=== PATIENT | female | born 1990 | race Caucasian/White ===

== ENCOUNTER 2019-04-10 17:41 | Inpatient (IN) | payer OTHER ==
[~2019-04-10] VITALS: Ht 174 cm; Wt 103.8 kg
[2019-04-10] VITALS (24 sets, daily range): BP systolic 95–176; BP diastolic 52–93
[2019-04-10] MEDS ORDERED: PRENTAB9 PO (19:04)
[2019-04-10] MEDS ORDERED: VALT500T PO (19:04)
--- NOTE | 2019-04-10 19:16 | HPE ---
DATE OF ADMISSION: 04/10/2019 A 28-year-old 1, last period 04/12/2019, estimated date of confinement (EDC) 04/17/2019, at 39 weeks, contractions every 7 minutes, 40 seconds, moderate intensity, no show or loss of fluid. 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 She is presently on Valtrex prophylactically. LABS: B positive, HIV negative, hepatitis negative, RPR negative, rubella immune, varicella immune. Pap normal. Urine negative. Gonorrhea and chlamydia are negative 1-hour glucose 99. GBS is negative. Urine1.010, pH 7. Blood pressure 122/84, respirations 16, pulse 99, temperature is 98.8. No distress. Symphysis fundus height is 39, vertex, ballotable and there is a vertex presenting, but it is floating 3 cm, stretchy. She has a bit of show. No ruptured membranes or bleeding. Contractions are 7 minutes. Category 1 strip for the most part. She does have periods of reduced variability, mostly it is moderate with accelerations, especially after she started drinking. Our plan is to examine her in a couple of hours, see if there is any change in the heart rate pattern or contractions or dilatation. If any of those are changed parameters, we will keep her as active labor in early stages, otherwise she will be discharged to followup in the office. Patient and expressed understanding of the plan of care.
--- NOTE | 2019-04-10 20:54 | IPN ---
DATE: 04/10/2019 28-year-old 1, para 0, last menstrual period (LMP) 04/12/2019, estimated date of delivery (EDC) 04/17/2019 at 39 weeks of gestation, came in initially earlier with contractions every 7 minutes apart, lasting 40 seconds, moderate intensity. She was found at that time to be 3 cm ballottable anterior with some show. We expected to evaluate her 2 hours later. Within an hour and a half she had spontaneous rupture of membranes clear liquid 2 cm, -2 station in active labor. PHYSICAL EXAMINATION: She had a category one strip, normocephalic, atraumatic. Neck: Full range of motion. Pupils equal and reactive to light. Distal pulses symmetric. No evidence of deep venous thrombosis (DVT), pulmonary embolism (PE) or superficial phlebitis. Chest is clear bilaterally bases. No wheezes or rhonchi. No CVA tenderness. Abdomen is soft. Uterus is nontender. Four quadrant bowel sounds are noted. She has no rashes, lesions or pruritus. No arthralgia, myalgia, no complaint of joint pain. No complaint of cough, wheeze, shortness breath or dyspnea on exertion. No bleeding. Neuro complete. No incontinence, urgency or frequency. No nausea, vomiting, diarrhea or constipation. No diabetic issues. She has no [employer] H[employer]IP or past medical or surgical history of consequence for labor and delivery. She is HSV positive, but has not had an outbreak since 2011, is on prophylactic Zovirax. Consent for vaginal delivery was described with the patient with possible use of forceps or vacuum devices needed, for maternal and indications, devices used to assist in vaginal delivery when normal pushing efforts cannot achieve delivery on their own or when delivery is needed in an emergency for baby's well-being. Medication may be used to augment or induce labor in order to achieve vaginal delivery and episiotomy may or may not be required to help baby deliver vaginally. May also require repair of any lacerations or tears of the vagina, vulva and caused by delivery and some case emergencies can arise that require emergency section. Emergency sections are only done for and maternal indications and this will be explained by her provider. This is delivery through the abdomen with an incision and sometimes this is safer for the mother and baby than continuing labor and I mentioned only performed with clinical indications. Risks of vaginal delivery include but not limited to bleeding, infection, injury to vagina, pelvic structures, baby, damage to the uterus, reaction to anesthesia, uterine rupture, risk of hysterectomy for life-threatening bleeding situations or even . Medications used to induce or augment may possibly increase the risk of hysterectomy, hemorrhage, tachysystole, heart rate abnormalities. There is an increase in perineal or vaginal tears, the risk of bowel or bladder injury, use of forceps or vacuum include scratches, hematomas of the head or intracranial bleed. The patient verbalized understanding and wishes to proceed and is requesting an epidural.
[2019-04-10] MEDS ORDERED: PROMETHAZINE INJ 25 MG/ML VIAL (J2550) IV ONE (21:00)
[2019-04-10] MEDS ORDERED: LR 1,000 ML IV SCH (21:00)
[2019-04-10] MEDS ORDERED: LACTATED RINGER'S 1000 ML IV ONE (21:00)
[2019-04-10] MEDS ORDERED: BUTORPHANOL 2 MG/ML INJ (J0595) IV ONE (21:00)
[2019-04-10 21:48] LABS: HEMATOCRIT 47.5 % (36.0-47.0); HEMOGLOBIN 16.2 g/dl (12.0-15.5); MEAN CORPUSCULAR HEMOGLOBIN 32.3 pg (27.0-33.0); MEAN CORPUSCULAR HGB CONC 34.1 g/dl (32.0-36.5); MEAN CORPUSCULAR VOLUME 94.6 fl (80.0-96.0); PLATELET COUNT, AUTOMATED 244 10^3/uL (150-450); RED BLOOD COUNT 5.02 10^6/uL (4.00-5.40); WHITE BLOOD COUNT 14.2 10^3/uL (4.0-10.0)
[2019-04-10] MEDS ORDERED: FENTANYL 2MCG/ML ROPIVACAINE 0.2% IN 0.9% NACL 100ML IVBAG As Ordered ONE (21:49)
[2019-04-10] MEDS ORDERED: REFRIGERATOR IV KEYS XX PRN (22:15)
[2019-04-10] MEDS ORDERED: ePHEDrine SULFATE 25 MG/5 ML(5MG/ML) SYRINGE IV PRN (22:15)
[2019-04-10] MEDS ORDERED: EPIDURAL/PCA KEYS XX PRN (22:15)
[2019-04-10] MEDS ORDERED: diphenhydrAMINE INJ 50MG/ML VIAL (J1200) IV PRN (22:15)
[2019-04-10] MEDS ORDERED: NALOXONE INJ 0.4 MG/1 ML VIAL (J2310) IV PRN (22:15)
[2019-04-10] MEDS ORDERED: EPIDURAL COMMENT XX SCH (22:15)
[2019-04-10] MEDS ORDERED: ONDANSETRON 4MG/2ML VIAL (J2405) IV PRN (22:15)
[2019-04-10] MEDS ORDERED: LACTATED RINGER'S 1000 ML IV PRN (22:15)
[2019-04-10] MEDS ORDERED: FENTANYL/ROPIVACAINE/NACL BAG 100 ML EPIDURAL SCH (22:15)
[2019-04-11] VITALS (14 sets, daily range): BP systolic 89–132; BP diastolic 7–82
[2019-04-11] MEDS ORDERED: OXYTOCIN DRIP 30 UNITS in IV 1 EA IV SCH (00:30)
[2019-04-11] MEDS ORDERED: ceFAZolin 2 GM/D5W 50 ML IV BAG (J0690 PER 500MG) As Ordered ONE (06:33)
[2019-04-11] MEDS ORDERED: BICITRA 30ML SOLN UDC As Ordered ONE (06:33)
[2019-04-11] MEDS ORDERED: LIDOCAINE 2% W/EPIN INJ 20ML **PRES FREE As Ordered ONE (06:45)
[2019-04-11] MEDS ORDERED: ONDANSETRON 4MG/2ML VIAL (J2405) As Ordered ONE (06:48)
[2019-04-11] MEDS ORDERED: BICITRA 30ML SOLN UDC PO ONE (07:00)
[2019-04-11] MEDS ORDERED: ceFAZolin SOD 2 GM in IV 1 EA IV ONE (07:00)
[2019-04-11] MEDS ORDERED: ACETAMINOPHEN 650 MG SUPP PR ONE (07:00)
[2019-04-11] MEDS ORDERED: BUPIVACAINE HCL 0.25% 10 ML VIAL SC ONE (07:00)
--- NOTE | 2019-04-11 07:06 | IPN ---
DATE: 04/11/2019 This lady was admitted with contractions. After having moderate intense contractions and rapidly dilating up to about 6 cm she elected to have an epidural as supposed to IV medication. Post epidural, her blood pressure was 107/55, respirations 18, pulse was 101 and she was afebrile. Her contractions spaced out. Still a category one strip. Therefore, we will augment with Pitocin starting at 2 milliunits. Safe to proceed. The patient expressed understanding of the plan of care.
--- NOTE | 2019-04-11 07:14 | IPN ---
DATE: 04/11/2019 This lady is a 1, para 0, at 39+ weeks of gestation, having come in because of contractions, moderate intensity. She eventually had an epidural, got fully dilated and was pushing for 1 hour and 40 minutes. The baby was in the left occiput transverse (LOT) position, very tight fit to the pelvis and the descent was at -2 station and never progressed beyond that. Pitocin augmentation was used up to 12 milliunits and still there was no evidence of descent and baby was tight to the pelvis. Category one strip with no decelerations. Because of prolonged pushing and failure to descend, a diagnosis of pelvic disproportion was made and appropriate arrangements for primary section. We discussed the risks and benefits of section including hemorrhage, infection, perforation, , reoperation, remote possibility of hysterectomy, remote possibility of blood transfusion, remote possibility of lacerations, remote possibility of the baby ending up in the intensive care unit (NICU). After expressing understanding and inability to descend despite adequate pushing, the patient signed the consent form. We await anesthesia for altering her pain management level.
[2019-04-11] MEDS ORDERED: dexameTHASONE 4 MG/ML 1ML VIAL (J1100) As Ordered ONE (07:16)
[2019-04-11] MEDS ORDERED: MORPHINE PRES-FREE INJ 10 MG/10 ML VIAL (J2274) As Ordered ONE (07:17)
[2019-04-11] MEDS ORDERED: OXYTOCIN INJ 10 UNITS/ML VIAL (J2590) As Ordered ONE (07:25)
[2019-04-11] MEDS ORDERED: METOCLOPRAMIDE INJ 10MG/2ML VIAL (J2765) IV PRN ×2 (07:28→08:30)
[2019-04-11] MEDS ORDERED: NALOXONE INJ 0.4 MG/1 ML VIAL (J2310) IV PRN ×2 (07:28)
[2019-04-11] MEDS ORDERED: NALBUPHINE HCL 10 MG/ML AMP (J2300) IV PRN (07:28)
[2019-04-11] MEDS ORDERED: diphenhydrAMINE INJ 50MG/ML VIAL (J1200) IV PRN (07:28)
[2019-04-11] MEDS ORDERED: ONDANSETRON 4MG/2ML VIAL (J2405) IV PRN ×2 (07:28→08:30)
[2019-04-11] MEDS ORDERED: KETOROLAC 60 MG/2 ML VIAL (J1885) As Ordered ONE (07:36)
[2019-04-11 07:39] LABS: CORD GAS ABE V -3.8; CORD GAS HCO3 V 22.6 MEQ/L; CORD GAS O2 SAT V 55.1 %; CORD GAS PCO2 V 45.8 mmHg; CORD GAS PH V 7.312 UNITS; CORD GAS PO2 V 27.1 mmHg; CORD GAS SBC V 20.3 MEQ/L; CORD GAS TCO2 V 24.1 MEQ/L
[2019-04-11 07:41] LABS: CORD GAS ABE A -3.3; CORD GAS HCO3 A 22.9 MEQ/L; CORD GAS O2 SAT A 44.1 %; CORD GAS PH A 7.324 UNITS; CORD GAS PO2 A 22.3 mmHg; CORD GAS SBC A 20.3 MEQ/L; CORD GAS TCO2 A 24.3 MEQ/L
[2019-04-11] MEDS ORDERED: MOM 30ML SUSPENSION UDC PO PRN (08:30)
[2019-04-11] MEDS ORDERED: ACETAMINOPHEN 500 MG TAB PO PRN (08:30)
[2019-04-11] MEDS ORDERED: ANUSOL HC CREAM 30GM TOP PRN (08:30)
[2019-04-11] MEDS ORDERED: ACETAMINOPHEN TAB 650MG DOSE (2X325MG) PO PRN (08:30)
[2019-04-11] MEDS ORDERED: DOCUSATE SODIUM 100 MG CAP PO PRN (08:30)
[2019-04-11] MEDS ORDERED: LR 1,000 ML IV SCH (08:30)
[2019-04-11] MEDS ORDERED: PERCOCET 5MG/325MG TAB PO PRN ×3 (08:30)
[2019-04-11] MEDS ORDERED: fentaNYL 100 MCG/2 ML INJECTION (J3010) IV PRN (08:30)
[2019-04-11] MEDS ORDERED: OXYTOCIN 30 UNITS IN 0.9% NaCl 500ML IV BAG (J2590) As Ordered ONE (08:53)
[2019-04-11] MEDS ORDERED: RHOGAM 300 MCG (1500 IU) INJ (J2790) IM SCH (09:00)
[2019-04-11] MEDS ORDERED: OXYTOCIN DRIP 30 UNITS in IV 1 EA IV ONE (09:00)
[2019-04-11] MEDS ORDERED: OXYTOCIN INJ 10 UNITS/ML VIAL (J2590) IV ONE (09:00)
[2019-04-11] MEDS ORDERED: MEASLES,MUMPS,RUBELLA VACCINE INJ (MMR-II) (90707) SC SCH (09:00)
[2019-04-11] MEDS: PRENATAL VITAMINS CHEWABLE TABLET PO SCH (09:00)
[2019-04-11] MEDS: KETOROLAC 30 MG/ML VIAL (J1885) IV SCH ×2 (14:04→19:57)
[2019-04-12 02:00] VITALS: BP 101/48
[2019-04-12] MEDS: KETOROLAC 30 MG/ML VIAL (J1885) IV SCH (02:06)
[2019-04-12 06:00] VITALS: BP 101/58
[2019-04-12 07:21] LABS: HEMATOCRIT 36.5 % (36.0-47.0); MEAN CORPUSCULAR HEMOGLOBIN 32.7 pg (27.0-33.0); MEAN CORPUSCULAR HGB CONC 33.7 g/dl (32.0-36.5); MEAN CORPUSCULAR VOLUME 97.1 fl (80.0-96.0); PLATELET COUNT, AUTOMATED 158 10^3/uL (150-450); RED BLOOD COUNT 3.76 10^6/uL (4.00-5.40); WHITE BLOOD COUNT 13.7 10^3/uL (4.0-10.0)
[2019-04-12 07:24] LABS: HEMOGLOBIN 12.3 g/dl (12.0-15.5)
[2019-04-12] MEDS: PRENATAL VITAMINS CHEWABLE TABLET PO SCH (08:30)
[2019-04-12 10:00] VITALS: BP 120/71
[2019-04-12] MEDS: IBUPROFEN 800 MG TAB PO SCH ×2 (10:28→17:22)
[2019-04-12 14:00] VITALS: BP 123/65
[2019-04-12 18:00] VITALS: BP 106/55
[2019-04-12 22:00] VITALS: BP 107/67
[2019-04-13 02:00] VITALS: BP 110/58
[2019-04-13] MEDS: IBUPROFEN 800 MG TAB PO SCH ×2 (02:13→09:01)
[2019-04-13 06:00] VITALS: BP 126/61
[2019-04-13] MEDS ORDERED: IBUP80TA PO (06:32)
[2019-04-13] MEDS ORDERED: DOCU100C16 PO (06:32)
[2019-04-13] MEDS ORDERED: PROC1CRE5 TOP (06:32)
[2019-04-13] MEDS ORDERED: PERCOCET PO ×2 (06:32)
[2019-04-13] MEDS: PRENATAL VITAMINS CHEWABLE TABLET PO SCH (09:00)
--- NOTE | 2019-04-13 19:52 | DSES ---
DATE OF ADMISSION: 04/10/2019 DATE OF DISCHARGE: 04/13/2019 This lady is a 28-year-old 1 who was admitted in spontaneous labor, had a primary section for cephalopelvic disproportion, impacted head, and meconium stained liquor, live female infant, 8 pounds 4 ounces, 3730 grams. scores of 8 and 9 at one and five minutes respectively. Arterial pH 7.32, base excess -3.3, venous pH 7.31, base excess -3.8. On discharge, her blood pressure was 126/61, respirations 16, pulse 52 and her temperature was 98.0. Her admitting hemoglobin was 16.2, hematocrit 47.5 and platelets were 244. Discharge hemoglobin 12.3, hematocrit 36.5 and platelets are 158. On discharge, we discussed phlebitis, cystitis, mastitis, endometritis, and cellulitis, diet, exercise, pain management, perineal, breast and wound care. On examination, normocephalic, atraumatic. Neck: Full range of motion. Pupils equal and reactive to light. Distal pulses are symmetric. No evidence of deep vein thrombosis (DVT), pulmonary embolism (PE), or superficial phlebitis. Chest is clear bilaterally bases. No wheezes or rhonchi. No costovertebral angle (CVA) tenderness. Abdomen soft, uterus 2 below. Lochia is moderate. Four quadrant bowel sounds. Incision is clean and dry. She has no rashes, lesions or pruritus. No arthralgia or myalgia. No complaints of joint pain. No complaint of cough, wheeze, shortness of breath or dyspnea on exertion. In summary, we have a term gestation delivered by primary section, live female infant. Medications were dispensed at [place]; medications are to be picked up by the patient. She has a 2-week incision check, a 6-week check.
--- NOTE | 2019-04-26 13:58 | RO ---
DATE OF PROCEDURE: 04/10/2019 PREOPERATIVE DIAGNOSIS: Cephalopelvic disproportion, impacted head, meconium stained liquid. POSTOPERATIVE DIAGNOSIS: Cephalopelvic disproportion, impacted head, meconium stained liquid. OPERATION PROPOSED: Primary section. OPERATION PERFORMED: Primary section. SURGEON: Dr. Cuong Schulz PHOTOTYPESETTING EQUIPMENT MONITOR: Dr. Marizol Maurer for extraction, retraction and visualization. ANESTHESIA: Epidural plus local anesthetic for intraperitoneal procedures. ESTIMATED BLOOD LOSS: 600 mL. DESCRIPTION OF PROCEDURE: After adequate time out, prepped and draped in the supine position, Ortiz catheter in the bladder draining clear urine. Antibiotics appropriately on board, sequentials in place. Pfannenstiel incision was made two fingerbreadths above the symphysis pubis passing through abdominal layers securing hemostasis. Opening peritoneal cavity. The Mobius was applied in the appropriate location. A low transverse incision was made into the uterus. There was meconium stained liquid noted. Neonatology was present for resuscitation. The baby's head was so impacted in the pelvis that we had difficulty extracting it abdominally and it required disimpaction from pushing from below. Even with that, we required to use a vacuum to extract the baby out of the pelvis and out of the abdomen. We delivered a live female infant weighing 3730 grams, 8 pounds 4 ounces, Apgars of 8 and 9 at one and five minutes respectively. The baby was turned over to neonatology. Arterial pH 7.32, base excess -3.3; venous pH 7.31, base excess -3.8. The placenta delivered thereafter manually, meconium staining on the membranes and on the placenta. The uterine cavity was swept out clean. IV Pitocin was running. The uterus required vigorous massage in order to get it to contract down. The lower segment was oversewn in the usual fashion in two layers, imbricating the second layer. Reperitonealization was performed. With instrument and pad count correct and both ovaries and tubes appeared to be normal, we then compressed the uterus, finding that it was eventually brit down under aggressive Pitocin therapy. The abdomen was then closed with running stitch for the peritoneum, same for the fascia, interrupted for subcutaneous, and Dexon to the skin. Marcaine 0.25%, 10 mL, at the incisional site. [place] and Telfa were applied. The patient was sent to recovery in good condition.
== END 2019-04-13 11:50 | disposition home or self-care (01) | DRG 773 ==
LOC: M LDO 17:41 → M LDI 20:07 → M OBS 04-11 09:25
PROVIDERS: ADMIT Obstetrics & Gynecology; ATTEND Obstetrics & Gynecology
PROC: 10D00Z1 Extraction of Products of Conception, Low, Open Approach (ICD-10-PCS; principal; 2019-04-11 06:42)
DX: O64.0XX0 Obstructed labor due to incomplete rotation of fetal head, not applicable or unspecified (principal); Z3A.39 39 weeks gestation of pregnancy; O77.0 Labor and delivery complicated by meconium in amniotic fluid; Z37.0 Single live birth